=== PATIENT | female | born 1960 | race Caucasian/White ===

== ENCOUNTER 2022-10-24 05:55 | Inpatient (IN) ==
[2022-10-24] MEDS ORDERED: VANCOMYCIN INJ 1,000 MG in SODIUM CHLORIDE 0.9% 250 ML IV ONE (06:00)
[2022-10-24] MEDS ORDERED: BUPIVACAINE 0.5% 50 ML VIAL ONE (06:19)
[2022-10-24] MEDS ORDERED: DEXAMETHASONE 4 MG/1 ML VIAL ONE (06:20)
[2022-10-24] MEDS ORDERED: FAMOTIDINE 20 MG TABLET ONE (06:22)
[2022-10-24] MEDS ORDERED: DIAZEPAM 5 MG TABLET ONE (06:22)
[2022-10-24] MEDS ORDERED: ACETAMINOPHEN 500 MG TABLET ONE (06:22)
[2022-10-24] MEDS ORDERED: GABAPENTIN 400 MG CAPSULE ONE (06:23)
[2022-10-24] MEDS ORDERED: LACTATED RINGERS 1,000 ML IV SCH (06:30)
[2022-10-24] MEDS ORDERED: SCOPOLAMINE 1.5 MG PATCH TRANSDERM ONE (06:30)
[2022-10-24] MEDS ORDERED: METOCLOPRAMIDE 10 MG/2 ML VIAL ONE (06:34)
[2022-10-24] MEDS ORDERED: ONDANSETRON 4 MG/2 ML VIAL ONE (06:34)
[2022-10-24] MEDS ORDERED: MORPHINE 2 MG/1 ML SYRINGE IV PRN ×3 (07:05→07:17)
[2022-10-24] MEDS ORDERED: BISACODYL 10 MG SUPP RECTAL PRN (07:05)
[2022-10-24] MEDS ORDERED: MAGNESIUM HYDROXIDE SUSP 30 ML UDCUP PO PRN (07:05)
[2022-10-24] MEDS ORDERED: LACTULOSE 20 GM/30 ML UDCUP PO PRN (07:05)
[2022-10-24] MEDS ORDERED: ONDANSETRON 4 MG/2 ML VIAL IV PRN (07:05)
[2022-10-24] MEDS ORDERED: PROMETHAZINE 25 MG/1 ML VIAL IM PRN (07:05)
[2022-10-24] MEDS ORDERED: TEMAZEPAM 7.5 MG CAPSULE PO PRN (07:05)
[2022-10-24] MEDS ORDERED: diphenhydrAMINE CAP 25 MG CAPSULE PO PRN (07:05)
[2022-10-24] MEDS ORDERED: buprenorphine HCL 0.3 MG/ML VIAL ONE (07:07)
[2022-10-24] MEDS ORDERED: ceFAZolin 1,000 MG VIAL ONE (08:07)
[2022-10-24] MEDS ORDERED: LACTATED RINGERS 1,000 ML IV ONE (08:07)
[2022-10-24] MEDS ORDERED: TRANEXAMIC ACID 1,000 MG/10 ML VIAL ONE (08:08)
[2022-10-24] MEDS ORDERED: KETAMINE 500 MG/10 ML VIAL ONE (08:37)
[2022-10-24] MEDS: INSULIN REGULAR 100 UNIT/ML SUBCUT SCH ×3 (14:37→20:55)
[2022-10-24] MEDS: DOCUSATE SODIUM 100 MG CAPSULE PO SCH ×2 (14:37→20:52)
[2022-10-24] MEDS: MULTIVITAMIN (CENTRUM) TABLET PO SCH (14:37)
[2022-10-24] MEDS: ceFAZolin 2,000 MG/50 ML DUPLEX IV SCH ×2 (16:53→22:58)
[2022-10-24] MEDS: GLIMEPIRIDE 4 MG TABLET PO SCH (18:26)
[2022-10-24] MEDS: FONDAPARINUX 2.5 MG/0.5 ML SYRINGE SUBCUT SCH (18:26)
[2022-10-24] MEDS: GABAPENTIN 300 MG CAPSULE PO SCH (20:52)
[2022-10-24] MEDS: SIMVASTATIN 20 MG TABLET PO SCH (20:52)
[2022-10-24] MEDS: INSULIN GLARGINE 100 UNIT/ML SUBCUT SCH (20:53)
[2022-10-25 04:31] LABS: Basophils % 0.5 % (0.0-0.8); Eosinophils # 0.2 10*3/uL (0.0-0.87); Eosinophils % 2.3 % (0.00-10.9); Hematocrit 32.8 VOL% (35.7-47.0); Hemoglobin 10.3 GM/DL (12.0-16.0); Immature Granulocytes % 0.3 %; Immature Granulocytes Absolute 0.03 #; Lymphocytes # 1.1 10*3/uL (1.4-4.0); Lymphocytes % 12.7 % (21.3-54.2); Mean Corpuscular HGB Conc 31.4 GM/DL (32-36); Mean Corpuscular Volume 87.5 FL (87-102); Mean Platelet Volume 9.6 FL (9.6-12.0); Monocytes # 0.8 10*3/uL (0.11-0.8); Neutrophils % 75.2 % (38.7-73.9); Platelet Count 189 T/CUMM (130-400); Red Blood Count 3.75 MC/CUMM (3.8-5.5); White Blood Count 8.7 T/CUMM (4-12)
[2022-10-25 04:55] LABS: Calcium 8.9 MG/DL (8.5-10.1); Osmolality,Calculated 277.8 MOS/KG (273-304); Potassium 4.5 MMOL/L (3.5-5.1)
[2022-10-25] MEDS: GLIMEPIRIDE 4 MG TABLET PO SCH ×2 (08:32→17:11)
[2022-10-25] MEDS: METOPROLOL SUCCINATE XL 25 MG TABLET PO SCH (08:32)
[2022-10-25] MEDS: DOCUSATE SODIUM 100 MG CAPSULE PO SCH ×2 (08:32→20:29)
[2022-10-25] MEDS: OMEGA 3 ACID ETHYL ESTERS 1 GM CAPSULE PO SCH (08:32)
[2022-10-25] MEDS: MULTIVITAMIN (CENTRUM) TABLET PO SCH (08:32)
[2022-10-25] MEDS: LOSARTAN 25 MG TABLET PO SCH (08:32)
[2022-10-25] MEDS: LACTOBACILLUS ACIDOPHILUS/BULGARICUS 1 PACKET PO SCH (08:33)
[2022-10-25] MEDS: INSULIN REGULAR 100 UNIT/ML SUBCUT SCH ×4 (09:01→20:27)
[2022-10-25] MEDS: INSULIN GLARGINE 100 UNIT/ML SUBCUT SCH ×2 (09:02→20:28)
[2022-10-25] MEDS: hydroCHLOROthiazide 25 MG TABLET PO SCH (09:45)
[2022-10-25] MEDS: FONDAPARINUX 2.5 MG/0.5 ML SYRINGE SUBCUT SCH (17:11)
[2022-10-25] MEDS: ACETAMINOPHEN 325 MG TABLET PO PRN (17:44)
[2022-10-25] MEDS: GABAPENTIN 300 MG CAPSULE PO SCH (20:28)
[2022-10-25] MEDS: SIMVASTATIN 20 MG TABLET PO SCH (20:28)
[2022-10-26] MEDS: MULTIVITAMIN (CENTRUM) TABLET PO SCH (08:47)
[2022-10-26] MEDS: POTASSIUM CHLORIDE 20 MEQ TABLET PO SCH (08:47)
[2022-10-26] MEDS: OMEGA 3 ACID ETHYL ESTERS 1 GM CAPSULE PO SCH (08:47)
[2022-10-26] MEDS: METOPROLOL SUCCINATE XL 25 MG TABLET PO SCH (08:47)
[2022-10-26] MEDS: DOCUSATE SODIUM 100 MG CAPSULE PO SCH ×2 (08:47→21:21)
[2022-10-26] MEDS: GLIMEPIRIDE 4 MG TABLET PO SCH ×2 (08:47→16:30)
[2022-10-26] MEDS: FUROSEMIDE 20 MG TABLET PO SCH (08:47)
[2022-10-26] MEDS: LACTOBACILLUS ACIDOPHILUS/BULGARICUS 1 PACKET PO SCH (08:48)
[2022-10-26] MEDS: LOSARTAN 25 MG TABLET PO SCH (08:48)
[2022-10-26] MEDS: INSULIN REGULAR 100 UNIT/ML SUBCUT SCH ×5 (09:19→21:32)
[2022-10-26] MEDS: INSULIN GLARGINE 100 UNIT/ML SUBCUT SCH ×2 (09:28→21:21)
[2022-10-26] MEDS: FONDAPARINUX 2.5 MG/0.5 ML SYRINGE SUBCUT SCH (17:20)
[2022-10-26] MEDS: SIMVASTATIN 20 MG TABLET PO SCH (21:21)
[2022-10-26] MEDS: GABAPENTIN 300 MG CAPSULE PO SCH (21:21)
[2022-10-27] MEDS ORDERED: DULAGLUTIDE 3 MG/0.5 ML SUBCUT SCH (09:00)
[2022-10-27] MEDS: LOSARTAN 25 MG TABLET PO SCH (09:41)
[2022-10-27] MEDS: FUROSEMIDE 20 MG TABLET PO SCH (09:41)
[2022-10-27] MEDS: MULTIVITAMIN (CENTRUM) TABLET PO SCH (09:41)
[2022-10-27] MEDS: DOCUSATE SODIUM 100 MG CAPSULE PO SCH ×2 (09:41→21:16)
[2022-10-27] MEDS: OMEGA 3 ACID ETHYL ESTERS 1 GM CAPSULE PO SCH (09:41)
[2022-10-27] MEDS: METOPROLOL SUCCINATE XL 25 MG TABLET PO SCH (09:41)
[2022-10-27] MEDS: POTASSIUM CHLORIDE 20 MEQ TABLET PO SCH (09:45)
[2022-10-27] MEDS: LACTOBACILLUS ACIDOPHILUS/BULGARICUS 1 PACKET PO SCH (09:45)
[2022-10-27] MEDS: GLIMEPIRIDE 4 MG TABLET PO SCH ×2 (11:18→17:14)
[2022-10-27] MEDS: INSULIN REGULAR 100 UNIT/ML SUBCUT SCH ×4 (11:18→21:16)
[2022-10-27] MEDS: INSULIN GLARGINE 100 UNIT/ML SUBCUT SCH ×2 (11:20→21:17)
[2022-10-27] MEDS: ACETAMINOPHEN 325 MG TABLET PO PRN (14:33)
[2022-10-27] MEDS: FONDAPARINUX 2.5 MG/0.5 ML SYRINGE SUBCUT SCH (17:14)
[2022-10-27] MEDS: SIMVASTATIN 20 MG TABLET PO SCH (21:15)
[2022-10-27] MEDS: GABAPENTIN 300 MG CAPSULE PO SCH (21:15)
[2022-10-28] MEDS: MULTIVITAMIN (CENTRUM) TABLET PO SCH (09:48)
[2022-10-28] MEDS: hydroCHLOROthiazide 25 MG TABLET PO SCH (09:48)
[2022-10-28] MEDS: LOSARTAN 25 MG TABLET PO SCH (09:48)
[2022-10-28] MEDS: OMEGA 3 ACID ETHYL ESTERS 1 GM CAPSULE PO SCH (09:48)
[2022-10-28] MEDS: INSULIN GLARGINE 100 UNIT/ML SUBCUT SCH ×2 (09:49→21:14)
[2022-10-28] MEDS: LACTOBACILLUS ACIDOPHILUS/BULGARICUS 1 PACKET PO SCH (09:49)
[2022-10-28] MEDS: DOCUSATE SODIUM 100 MG CAPSULE PO SCH ×2 (09:49→21:10)
[2022-10-28] MEDS: METOPROLOL SUCCINATE XL 25 MG TABLET PO SCH (09:49)
[2022-10-28] MEDS: GLIMEPIRIDE 4 MG TABLET PO SCH (10:01)
[2022-10-28] MEDS: INSULIN REGULAR 100 UNIT/ML SUBCUT SCH ×4 (10:03→21:11)
[2022-10-28] MEDS: FONDAPARINUX 2.5 MG/0.5 ML SYRINGE SUBCUT SCH (21:09)
[2022-10-28] MEDS: GABAPENTIN 300 MG CAPSULE PO SCH (21:10)
[2022-10-28] MEDS: SIMVASTATIN 20 MG TABLET PO SCH (21:10)
[2022-10-29] MEDS: FUROSEMIDE 20 MG TABLET PO SCH (08:32)
[2022-10-29] MEDS: MULTIVITAMIN (CENTRUM) TABLET PO SCH (08:32)
[2022-10-29] MEDS: METOPROLOL SUCCINATE XL 25 MG TABLET PO SCH (08:32)
[2022-10-29] MEDS: OMEGA 3 ACID ETHYL ESTERS 1 GM CAPSULE PO SCH (08:32)
[2022-10-29] MEDS: POTASSIUM CHLORIDE 20 MEQ TABLET PO SCH (08:32)
[2022-10-29] MEDS: LOSARTAN 25 MG TABLET PO SCH (08:32)
[2022-10-29] MEDS: LACTOBACILLUS ACIDOPHILUS/BULGARICUS 1 PACKET PO SCH (08:32)
[2022-10-29] MEDS: DOCUSATE SODIUM 100 MG CAPSULE PO SCH (08:32)
[2022-10-29] MEDS: INSULIN GLARGINE 100 UNIT/ML SUBCUT SCH (08:36)
[2022-10-29] MEDS: INSULIN REGULAR 100 UNIT/ML SUBCUT SCH (08:36)
[2022-10-29 10:58] VITALS: BP 161/57
== END 2022-10-29 10:52 | DRG 470 ==
LOC: N.OR 05:55 → N.SDSINP 05:59 → N.3E 12:27
PROVIDERS: ADMIT Orthopaedic Surgery; ATTEND Orthopaedic Surgery